=== PATIENT | male | born 1955 | race Asian ===

== ENCOUNTER 2018-03-23 20:38 | Inpatient (IN) | payer MEDICARE, OTHER ==
[~2018-03-23] VITALS: Ht 170.2 cm; Wt 83.0 kg
[2018-03-23 20:50] VITALS: BP 118/70
[2018-03-23 21:00] VITALS: BP 118/70
--- NOTE | 2018-03-23 21:00 | NUR ---
CHIEF ANALYTICS OFFICER ADMITTING NOTES RECEIVED PATIENT FROM [facility] TRANSPORTED BY 2 EMT, SAFELY TRANSFERRED TO BED, AMBULATORY WITH STAND BY ASSIST, AWAKE ALERT AND ORIENTED X 4, ABLE TO MAKE NEEDS KNOWN RESPIRATIONS EVEN AND UNLABORED WITH EQUAL RISE AND FALL OF CHEST SPO2 RA AT 98%, PLACED ON CARDIAC MONITORING SR 98, NPO AT THIS TIME, IV SITE TO LEFT AC#20 G INTACT AND PATENT, RIGHT HAND #22G INTACT AND PATENT, NO REDNESS, OR INFILTRATION PRESENT TO SITES. DENIES ANY PAIN AT THIS TIME, MRSA SWAB DONE, BODY ASSESSMENT DONE, SKIN INTACT,BELONGINGS LIST DONE, ALL NEEDS ATTENDED AT THIS TIME WILL CONTINUE TO MONITOR. REMAINS COMFORTABLE AT THIS TIME.
[2018-03-23] MEDS ORDERED: GLIM4TAB2 PO (21:56)
[2018-03-23] MEDS ORDERED: TENO300T5 PO (21:56)
[2018-03-23] MEDS ORDERED: INSU100I35 SQ (21:56)
[2018-03-23] MEDS ORDERED: GABA-532 PO (21:56)
[2018-03-23] MEDS ORDERED: ASPI-605 PO (21:56)
[2018-03-23] MEDS ORDERED: LABE100T5 PO (21:56)
[2018-03-23] MEDS ORDERED: INSU100V28 IJ (21:56)
[2018-03-23] MEDS ORDERED: ATOR80TA PO (21:56)
[2018-03-23] MEDS ORDERED: ALLO100T PO (21:56)
--- NOTE | 2018-03-23 22:00 | NUR ---
CAKE MIXER NOTES MADE AWARE OF ADMISSION AND MED RECON IN PLACE, AND PATIENT REQUESTING TO HAVE SOMETHING TO DRINK AND EAT, PER MD OKAY FOR LITTLE WATER AND PATIENT TO REMAIN NPO. PATIENT MADE AWARE. REMAINS COMFORTABLE AT THIS TIME.
[2018-03-24] VITALS: BP 94/59
--- NOTE | 2018-03-24 00:34 | NUR ---
CORE STICKER NOTES PATIENT INSISTING TO HAVE SODA PER MD OKAY TO HAVE SMALL AMOUNT, AND OKAY TO GIVE SMALL AMOUNT OF COKE AT THIS TIME NOW SMALL AMOUNT GIVEN.
[2018-03-24] MEDS ORDERED: ACETAMINOPHEN 650 MG/SUPP.RECT RC PRN (01:00)
[2018-03-24] MEDS: IV D5/0.45 NACL 1,000 ML IV PRN ×2 (01:28→21:05)
[2018-03-24] MEDS: ONDANSETRON HCL/PF 4 MG/2 ML VIAL IVP PRN ×3 (03:07→23:05)
[2018-03-24] MEDS: HYDROMORPHONE INJ 2 MG/ML DISP.SYRIN IV PRN ×4 (03:12→23:03)
--- NOTE | 2018-03-24 03:12 | NUR ---
FRAME NAILER NOTES PATIENT COMPLAINT OF NAUSEA AND PAIN ZOFRAN PRN ORDERED GIVEN COMPLAIN OF PAIN TO ABDOMEN / STATES"ACUTE AND ACHING, AL OF THE ABOVE" DILAUDID 0.25ML/0.5MG GIVEN ORDERED THE REST WASTED WITH ANOTHER RN VS WNL 123/81,88,18,97% WILL CONTINUE TO MONITOR FOR EFFECTIVENESS.
[2018-03-24 04:00] VITALS: BP_SYST 113; BP_SYST 118; BP_DIAS 73
--- NOTE | 2018-03-24 06:25 | NUR ---
GRAIN ELEVATOR MAN CLOSING NOTES PATIENT REMAINS IN BED SLEEPING BUT EASILY AROUSABLE, DILAUDID AND ZOFRAN EFFECTIVE, NAUSEA RESOLVED, ALERT AND ORIENTED X 4, RESPIRATIONS EVEN AND UNLABORED WITH EQUAL RISE AND FALL OF CHEST, DENIES ANY PAIN AT THIS TIME, ON TOWER OPERATOR SR 99 WITH PAC AND PVC'S. NO DISTRESS PRESENT, DENIES CHEST PAIN , NO BLEEDING PRESENT THROUGHOUT SHIFT, PATIENT IS NPO, IV SITE TO LEFT AC #20G INTACT AND PATENT, NO REDNESS, NO INFILTRATION PRESENT, IV SITE TO RIGHT HAND #22 G INTACT AND PATENT, NO REDNESS, NO INFILTRATION IVF D5 1/2 NS RUNNING AT 70ML/HR. BATHROOM NEEDS ATTENDED WITH STANDY BY ASSIST, CALL LIGHT KEPT WITHIN REACH, SAFETY PRECAUTIONS IN PLACE, ALL NEEDS ATTENDED REMAINS COMFORTABLE, WILL CONTINUE TO MONITOR AND ENDORSE TO NEXT SHIFT.
[2018-03-24 06:49] LABS: BASOPHILS # (AUTO) 0.1 /CMM (0.0-0.2); BASOPHILS % (AUTO) 0.5 % (0.0-2.0); EOSINOPHILS % (AUTO) 0.6 % (0.0-6.0); HEMATOCRIT 27 % (39-51); HEMOGLOBIN 8.5 g/dL (13.5-17.5); LYMPHOCYTES # (AUTO) 1.8 /CMM (0.8-4.8); LYMPHOCYTES % (AUTO) 17.3 % (20.0-44.0); MEAN CORPUSCULAR HGB CONC 32 g/dl (31.0-36.0); MEAN CORPUSCULAR VOLUME 89 fL (80-96); MONOCYTES # (AUTO) 0.9 /CMM (0.1-1.30); MONOCYTES % (AUTO) 8.6 % (2.0-12.0); NEUTROPHILS # (AUTO) 7.8 /CMM (1.8-8.9); PLATELET COUNT (AUTO) 113 /CMM (150-450); RED BLOOD CELL COUNT(AUTO) 2.97 MIL/uL (4.5-6.0); WHITE BLOOD COUNT (AUTO) 10.7 K/uL (4.3-11.0)
--- NOTE | 2018-03-24 06:55 | NUR ---
FOOD SAFETY AUDITOR NOTES PATIENT ASSISTED TO THE BATHROOM, COMPLAINT OF PAIN AND NAUSEA. REQUESTING FOR PAIN MEDICATION AND NAUSEA , MD MADE AWARE LAST TIME GIVEN 3 HOURS AGO,PER MD WITH NEW ORDER FOR ONE TIME DOSE, DILAUDID 0.5MG AND ZOFRAN ONE TIME DOSE 4 MG. ORDERS NOTED AND CARRIED OUT.
[2018-03-24] MEDS ORDERED: ONDANSETRON HCL/PF 4 MG/2 ML VIAL IV ONE (07:00)
[2018-03-24] MEDS ORDERED: HYDROMORPHONE INJ 2 MG/ML DISP.SYRIN IV ONE (07:00)
[2018-03-24 07:18] LABS: ALBUMIN 2.7 g/dL (3.4-5.0); BILIRUBIN,TOTAL 1.2 mg/dL (0.2-1.0); CALCIUM, SERUM 7.6 mg/dL (8.5-10.1); CREATININE 1.5 mg/dL (0.6-1.3); MAGNESIUM 2.3 mg/dL (1.8-2.4); PHOSPHORUS 3.4 mg/dL (2.5-4.9); TOTAL PROTEIN, SERUM 5.1 g/dL (6.4-8.2)
--- NOTE | 2018-03-24 07:30 | NUR ---
MS RN OPENING NOTES RECEIVED PATIENT IN STABLE CONDITION. BED SIDE RAILS ARE UP X2. BED IS LOCKED AND LOWERED. CALL LIGHT IS WITHIN REACH. IV LINE IS INTACT AND PATENT. WILL CONTINUE TO MONITOR PATIENT.
--- NOTE | 2018-03-24 07:33 | NUR ---
BOOT TURNER NOTES ONE TIME DOSE ORDERED GIVEN ZOFRAN 4MG DILAUDID 0.5MG. VS WNL 125,76,95,18,98%.
--- NOTE | 2018-03-24 07:34 | NUR ---
MATERIAL HANDLER 2ND SHIFT CLOSING NOTES PATIENT IN BED AWAKE ALERT AND ORIENTED X4, ABLE TO MAKE NEEDS KNOWN PATIENT MADE AWARE HE IS TO BE NPO AT THIS TIME NEED REMINDER. NO SOB AT THIS TIME, NO BLEEDING NOTED, ASSISTED TO THE BATHROOM , BACK TO BED COMFORTABLE IVF RUNNING ORDERED,IV TO LEFT AC AND RIGHT HAND INTACT, NO REDNESS, NO INFILTRATION. ON HEAVY DUTY DIESEL MECHANIC SR 95. NO DISTRESS PRESENT AT THIS TIME, ALL NEEDS ATTENDED , SAFETY PRECAUTIONS IN PLACE, LOW BED AND LOCKED, CALL ALARM IN PLACE, WILL CONTINUE TO MONITOR AND ENDORSE TO NEXT SHIFT.
[2018-03-24 08:00] VITALS: BP 120/71
[2018-03-24] MEDS: PANTOPRAZOLE 40 MG VIAL IV SCH ×2 (08:25→20:44)
[2018-03-24] MEDS ORDERED: PANTOPRAZOLE 40 MG VIAL IV SCH (09:00)
[2018-03-24 09:26] LABS: THYROID STIMULATING HORMONE 3.468 uIU/mL (0.358-3.74)
[2018-03-24 12:00] VITALS: BP 104/66
[2018-03-24 12:25] LABS: CREATININE, URINE 84.3 MG/DL (30.0-125.0); URINE TOTAL PROTEIN 22.6 mg/dL (0-11.9)
[2018-03-24 14:12] LABS: APPEARANCE,URINE Clear (CLEAR); BILIRUBIN,URINE Negative (NEGATIVE); BLOOD, URINE Negative Ery/uL (NEGATIVE); COLOR,URINE Yellow (YELLOW); KETONES,URINE Negative (NEGATIVE); LEUKOCYTE ESTERASE ,URINE Negative (NEGATIVE); NITRITE, URINE Negative (NEGATIVE); PH,URINE 5.5 (5.0-8.0); PROTEIN,URINE Negative (NEGATIVE); UGLUCOSE >=1000 mg/dL (NEGATIVE); UROBILINOGEN,URINE 0.2 EU/dL (0.2)
[2018-03-24] MEDS ORDERED: DEXTROSE 50%-WATER 50 ML DISP.SYRIN IV PRN (15:00)
[2018-03-24 15:03] LABS: URIC ACID CRYSTALS,URINE Moderate /HPF (None Seen)
[2018-03-24 15:04] LABS: BACTERIA,URINE Few /HPF (None Seen); RBC,URINE 0-2 /HPF (0-2); SQUAMOUS EPITHELIAL CELL,UR Rare /HPF (None Seen); WBC,URINE 0-2 /HPF (0-3)
[2018-03-24 15:05] LABS: EOSINOPHIL,URINE None Seen
[2018-03-24 16:00] VITALS: BP 133/83
[2018-03-24] MEDS ORDERED: IV NS 0.9% 1,000 ML BAG IV ONE (16:30)
[2018-03-24] MEDS ORDERED: IV NS 0.9% 1,000 ML IV PRN (16:30)
[2018-03-24] MEDS: BLOOD SUGAR DIAGNOSTIC 1 EACH STRIP IN SCH ×2 (16:46→23:06)
[2018-03-24] MEDS: INSULIN REGULAR, HUMAN 100 UNIT/ML 3 ML VIAL SQ PRN ×2 (16:48→23:18)
--- NOTE | 2018-03-24 19:35 | NUR ---
TELERN FULLY AWAKE, FEELING WEAK. STATED HAVING LOOSE LIQUID STOOLS TWICE. INSISTED TO HAVE IMMODIUM. PLACED CALL TO DR BOATENG, PENDING. BEDREST FOR NOW, IVF RECONNECTED. INFUSING WELL. NO SOB, HAVE O2 STANDBY.
[2018-03-24 20:00] VITALS: BP 124/71
[2018-03-24] MEDS: LOPERAMIDE HCL (2 MG CAP) 2 MG CAPSULE PO PRN (20:43)
--- NOTE | 2018-03-24 20:45 | NUR ---
TELERN IMODIUM 10 PO GIVEN. 02 2L VIA NC MAINTAINED.
--- NOTE | 2018-03-24 23:23 | NUR ---
TELERN VERBALIZES SEVERE ABD PAIN ACCPD BY NAUSEA. ZOFRAN AND DILAUDED ADMINISTERED ORDERED. BS WAS 268, COVERED WITH 6 UNITS OF REG INSULIN SQ. BEDREST EMPHASIZED, IVF CONTINUED
[2018-03-25 05:00] VITALS: BP 149/84
--- NOTE | 2018-03-25 06:50 | NUR ---
TELERN REFUSED BLOOD DRAW OF THIS TIME, WILL CALL. REFUSED TO BE DISTURBED.
--- NOTE | 2018-03-25 07:40 | NUR ---
PRODUCE ASSOCIATE OPENING NOTES RECEIVED PT LAYING IN BED, SLEEPING COMFORTABLY. PT IS EASILY AROUSABLE, A/O X4, AFEBRILE. RESPIRATIONS ARE EVEN AND UNLABORED, NOT IN ANY ACUTE DISTRESS NOTED. PT C/O ABDOMINAL PAIN 10/27, NO C/O SOB, N/V. IV SITE TO LAC AND RIGHT HAND INTACT, NO INFILTRATION NOTED. DRESSING KEPT CLEAN AND DRY. PT REFUSES IV FLUIDS AT THIS TIME AND STATES "START IT LATER." EXPLAINED THE IMPORTANCE OF IV HYDRATION, PT STILL NOTED WITH REFUSAL. PT ALSO STATED THAT HE WOULD LIKE LACTOSE FREE MILK. NOTIFIED KITCHEN AND WILL BRING LACTOSE FREE SILK ALMOND MILK, PER ARBEN. SAFETY MEASURES ARE IN PLACE. INSTRUCTED PT TO USE CALL LIGHT WHEN ASSISTANCE IS NEEDED, CALL LIGHT IS LEFT WITHIN REACH. WILL CONTINUE TO MONITOR PT THROUGHOUT SHIFT FOR CONTINUITY OF CARE.
[2018-03-25 08:00] VITALS: BP 131/75
[2018-03-25] MEDS: BLOOD SUGAR DIAGNOSTIC 1 EACH STRIP IN SCH ×4 (08:03→21:03)
[2018-03-25] MEDS: PANTOPRAZOLE 40 MG VIAL IV SCH ×2 (08:04→20:09)
[2018-03-25] MEDS: INSULIN REGULAR, HUMAN 100 UNIT/ML 3 ML VIAL SQ PRN ×4 (08:10→21:03)
[2018-03-25] MEDS: HYDROMORPHONE INJ 2 MG/ML DISP.SYRIN IV PRN ×3 (08:21→23:32)
[2018-03-25] MEDS: ONDANSETRON HCL/PF 4 MG/2 ML VIAL IVP PRN ×2 (11:54→17:35)
[2018-03-25 12:00] VITALS: BP 124/73
--- NOTE | 2018-03-25 15:12 | NUR ---
SHOE TRIMMER NOTES-- PT STATED HE THOUGHT HE WAS HAVING EGD DONE TODAY BUT NOBODY TOLD HIM TO SIGN ANY CONSENTS OR BE NPO. NOTIFIED DR. SPICER RE: PT STATING HE WANTS THE EGD DONE AND HAS BEEN C/O ABDOMINAL PAIN AND NAUSEA. PER DR. SPICER, "EGD WILL BE FOR TOMORROW." HOWEVER, DR. SPICER IS NOT SCOOP FILLER TOMORROW AND STATED HE WILL COMMUNICATE IT TO DR. LAGUNA. PER DR. SPICER, HE WILL SEE THE PATIENT TODAY.
--- NOTE | 2018-03-25 15:57 | NUR ---
COMPLAINT CLERK NOTES-- PT SEEN AND EXAMINED BY DR. SPICER W/ ORDERS TO START LACTULOSE 30ML PO Q8H AND EGD FOR TOMORROW. ORDERS READ BACK AND VERIFIED. ORDERS NOTED AND CARRIED OUT.
[2018-03-25 16:00] VITALS: BP 117/79
--- NOTE | 2018-03-25 16:13 | NUR ---
SPRINKLER IRRIGATION EQUIPMENT MECHANIC NOTES-- PER DR. SPICER, HE WILL NOTIFY TESSA BRIGHT RE:EGD TOMORROW.
[2018-03-25] MEDS: LACTULOSE 10 G/15 ML UDC (PYXIS) PO SCH ×2 (16:34→20:11)
[2018-03-25] MEDS ORDERED: LACTULOSE 10 G/15 ML UDC (PYXIS) PO PRN (17:00)
[2018-03-25 17:09] LABS: ALBUMIN 2.8 g/dL (3.4-5.0); BILIRUBIN,TOTAL 1.1 mg/dL (0.2-1.0); CALCIUM, SERUM 7.8 mg/dL (8.5-10.1); CREATININE 1.5 mg/dL (0.6-1.3); PHOSPHORUS 2.8 mg/dL (2.5-4.9); POTASSIUM 4.7 mmol/L (3.5-5.1); TOTAL PROTEIN, SERUM 5.3 g/dL (6.4-8.2)
--- NOTE | 2018-03-25 18:45 | NUR ---
LAW PROFESSOR CLOSING NOTES PT ABLE TO MAKE NEEDS KNOWN. NEEDS MET AND RENDERED. PT IS A/O X4, AFEBRILE. RESPIRATIONS ARE EVEN AND UNLABORED, NOT IN ANY ACUTE DISTRESS NOTED. PT DENIES ANY PAIN AT THIS TIME, NO C/O SOB, N/V. IV SITE TO LAC AND RIGHT HAND INTACT, NO INFILTRATION NOTED. DRESSING KEPT CLEAN AND DRY. SAFETY MEASURES ARE IN PLACE. CONSENTS SIGNED FOR EGD. PT MADE AWARE HE WILL BE NPO POST MIDNIGHT. WILL ENDORSE TO NEXT SHIFT FOR CONTINUITY OF CARE.
--- NOTE | 2018-03-25 19:28 | NUR ---
MARKETING ASSISTANT MANAGER NOTE RECEIVED PT IN STABLE CONDITION. A&O X4 ABLE TO MAKE NEEDS KNOWN. NO SIGNS OF SOB OR DISTRESS, NO CHEST PAIN, NO C/O N/V. SAFETY MEASURES IN PLACE: BED LOW AND LOCKED POSITION, UPPER BED RAILS UP X2, AND CALL LIGHT WITHIN REACH. WILL CONT. TO MONITOR.
[2018-03-25 20:00] VITALS: BP 113/59
--- NOTE | 2018-03-25 20:15 | NUR ---
HAT CLEANER NOTE PT REFUSED 21OO DOSE OF LACTULOSE. STATING "I'VE BEEN POOPING ALL DAY. I DO NOT WANT IT." PT MADE AWARE OF RISKS AND BENEFITS WITH VERBALIZATION OF UNDERSTANDING. WILL CONTINUE TO MONITOR.
[2018-03-25 23:12] LABS: BASOPHILS % (AUTO) 0.5 % (0.0-2.0); EOSINOPHILS % (AUTO) 1.9 % (0.0-6.0); HEMATOCRIT 26 % (39-51); LYMPHOCYTES # (AUTO) 1.1 /CMM (0.8-4.8); MEAN CORPUSCULAR HGB CONC 31 g/dl (31.0-36.0); MEAN CORPUSCULAR VOLUME 89 fL (80-96); MONOCYTES # (AUTO) 0.4 /CMM (0.1-1.30); NEUTROPHILS # (AUTO) 2.9 /CMM (1.8-8.9); NEUTROPHILS % (AUTO) 64.6 % (43.0-81.0); PLATELET COUNT (AUTO) 97 /CMM (150-450); RED BLOOD CELL COUNT(AUTO) 2.89 MIL/uL (4.5-6.0); WHITE BLOOD COUNT (AUTO) 4.4 K/uL (4.3-11.0)
[2018-03-25 23:29] LABS: ALBUMIN 2.7 g/dL (3.4-5.0); BILIRUBIN,TOTAL 0.8 mg/dL (0.2-1.0); CALCIUM, SERUM 7.7 mg/dL (8.5-10.1); CREATININE 1.6 mg/dL (0.6-1.3); POTASSIUM 3.9 mmol/L (3.5-5.1)
--- NOTE | 2018-03-25 23:35 | NUR ---
TELERN VERBALIZES ABD PAIN RATE OF 8/10. DILAUDED 0.5 MG IVP ADMINISTERED. SAFETY PRECAUTIONS EMPHASIZED.
[2018-03-25 23:54] LABS: LYMPHOCYTES % (MANUAL) 25 % (16-48); NEUTROPHILS % (MANUAL) 68 (42-76)
[2018-03-25 23:55] LABS: EOSINOPHILS % (MANUAL) 1 % (0-4); MONOCYTES % (MANUAL) 6 % (0-11.0)
[2018-03-26] MEDS: LACTULOSE 10 G/15 ML UDC (PYXIS) PO SCH ×3 (05:00→21:00)
--- NOTE | 2018-03-26 05:05 | NUR ---
VOLLEYBALL COACH NOTE ATTEMPTED TO GIVE 0500 DOSE OF LACTULOSE TO PT. PT. REFUSED, STATING HE HAS HAD 2 BM THROUGH THE NIGHT.
[2018-03-26] MEDS: IV D5/0.45 NACL 1,000 ML IV PRN (05:55)
--- NOTE | 2018-03-26 06:18 | NUR ---
POLISHING MACHINE TENDER NOTE PT IN STABLE CONDITION. A&O X4 ABLE TO MAKE NEEDS KNOWN. PT NPO SINCE MIDNIGHT. NO SIGNS OF SOB OR DISTRESS, NO CHEST PAIN, NO C/O N/V. SAFETY MEASURES IN PLACE: BED LOW AND LOCKED POSITION, UPPER BED RAILS UP X2, AND CALL LIGHT WITHIN REACH. WILL CONT. TO MONITOR AND ENDORSE TO NEXT SHIFT FOR SARA.
[2018-03-26] MEDS: INSULIN REGULAR, HUMAN 100 UNIT/ML 3 ML VIAL SQ PRN ×4 (06:29→21:31)
[2018-03-26] MEDS: BLOOD SUGAR DIAGNOSTIC 1 EACH STRIP IN SCH ×4 (06:31→21:29)
--- NOTE | 2018-03-26 07:30 | NUR ---
RN OPENING NOTES RECEIVED PATIENT IN BED RESTING. A/OX4, ABLE TO MAKE NEEDS KNOWN. NOT IN ANY FORM OF DISTRESS, NO SOB. DENIED PAIN OR DISCOMFORT AT THE MOMENT. IV ACCESS INTACT AND PATENT. ON TELE, SR 84. KEPT NPO FOR SURGERY TODAY. KEPT PATIENT SAFE AND COMFORTABLE. BED IN LOW/LOCKED POSITION, SIDERAISL UPX2, CALL LIGHT IN REACH. WILL CONTINUE TO MONITOR ACCORDINGLY.
[2018-03-26 08:00] VITALS: BP 136/80
[2018-03-26] MEDS: PANTOPRAZOLE 40 MG VIAL IV SCH ×2 (08:33→21:20)
[2018-03-26] MEDS: ONDANSETRON HCL/PF 4 MG/2 ML VIAL IVP PRN (08:43)
--- NOTE | 2018-03-26 09:50 | NUR ---
PICKED UP FOR SURGERY
[2018-03-26 10:48] VITALS: BP 121/69
--- NOTE | 2018-03-26 10:48 | NUR ---
CAME BACK FROM SURGERY. PATIENT IN STABLE CONDITION. VSS
--- NOTE | 2018-03-26 15:11 | NUR ---
RN NOTES DC'd IV ACCESS ON RIGHT HAND. NOT PATENT AND NOT FLUSHING. APPLIED PRESSURE, NO BLEEDING, NO COMPLICATIONS.
[2018-03-26 16:00] VITALS: BP 119/78
--- NOTE | 2018-03-26 19:11 | NUR ---
RN CLOSING NOTES PATIENT IN STABLE CONDITION. ALL NEEDS ATTENDED AND PROVIDED. ALL DUE MEDICATIONS GIVEN ORDERED. KEPT PATENT SAFE AND COMFORTABLE. BED IN LOW/LOCKED POSITION, SIDERAILS UPX2, CALL LIGHT IN REACH. WILL CONTINUE TO MONITOR ACCORDINGLY.
--- NOTE | 2018-03-26 19:41 | NUR ---
RN MS OPENING NOTES RECEIVED PATIENT IN BED AWAKE. ALERT AND ORIENTED X4, VERBALLY RESPONSIVE, ABLE TO MAKE NEEDS KNOWN. BREATHING EVEN AND UNLABORED. NO SOB NOTED. TOLERATING ROOM AIR. IV ON LAC INTACT AND PATENT. WITH COMPLAINTS OF PAIN ON ABDOMEN, WILL GIVE PRN PAIN MEDICATION. SKIN DRY AND WARM TO TOUCH. AFEBRILE. ALL OTHER NEEDS ATTENDED TO. SAFETY MEASURES IN PLACE. CALL LIGHT WITHIN REACH. WILL CONTINUE TO MONITOR.
[2018-03-26] MEDS: HYDROMORPHONE INJ 2 MG/ML DISP.SYRIN IV PRN (19:53)
[2018-03-26 20:00] VITALS: BP 124/78
--- NOTE | 2018-03-26 21:00 | NUR ---
RN MS NOTES PATIENT REFUSED LACTULOSE. PER PATIENT HE'S GONE TO THE BATHROOM AND MADE BM MULTIPLE TIMES ALREADY. EXPLAINED RISKS AND BENEFITS BUT STILL REFUSED. WILL CONTINUE TO MONITOR.
[2018-03-26] MEDS: CARVEDILOL 3.125 MG TABLET PO SCH (21:20)
[2018-03-27] MEDS: LACTULOSE 10 G/15 ML UDC (PYXIS) PO SCH ×3 (05:00→21:00)
--- NOTE | 2018-03-27 05:12 | NUR ---
RN MS NOTES PATIENT REFUSED LACTULOSE AGAIN DUE TO FREQUENT BM'S. EXPLAINED RISKS AND BENEFITS BUT STILL REFUSED. WILL CONTINUE TO MONITOR.
--- NOTE | 2018-03-27 06:03 | NUR ---
RN MS NOTES PATIENT REFUSED BLOOD DRAW THIS AM. PER PATIENT, HE WANTS IT "LATER". ROOF TECHNICIAN WILL COME BACK LATER. WILL CONTINUE TO MONITOR.
[2018-03-27] MEDS: BLOOD SUGAR DIAGNOSTIC 1 EACH STRIP IN SCH ×4 (06:30→21:34)
[2018-03-27] MEDS: INSULIN REGULAR, HUMAN 100 UNIT/ML 3 ML VIAL SQ PRN ×4 (06:31→21:39)
--- NOTE | 2018-03-27 06:44 | NUR ---
RN MS CLOSING NOTES PATIENT RESTING IN BED. NO ACUTE CHANGES THROUGHOUT SHIFT. BREATHING EVEN AND UNLABORED. NO SOB NOTED. TOLERATING ROOM AIR. IV ON LAC INTACT AND PATENT. NO COMPLAINTS OF PAIN OR DISCOMFORT. NO FACIAL GRIMACING. SKIN DRY AND WARM TO TOUCH. AFEBRILE. ALL OTHER NEEDS ATTENDED TO. SAFETY MEASURES IN PLACE. CALL LIGHT WITHIN REACH. WILL ENDORSE TO ONCOMING NURSE FOR SARA.
--- NOTE | 2018-03-27 07:30 | NUR ---
RN OPENING NOTES PATIENT RESTING IN BED. BREATHING EVEN AND UNLABORED. NO SOB, TOLERATING ROOM AIR SATTING 98%. NOT IN ANY FORM OF DISTRESS. IV ACCESS INTACT AND PATENT. NO COMPLAINTS OF PAIN OR DISCOMFORT AT THE MOMENT. KEPT PATIENT SAFE AND COMFORTABLE. BED IN LOW/LOCKED POSITION, SIDERAILS UPX2, CALL LIGHT IN REACH, WILL CONTINUE TO MONIOTR ACCORDINGLY.
[2018-03-27 08:00] VITALS: BP 90/57
[2018-03-27] MEDS: PANTOPRAZOLE 40 MG VIAL IV SCH ×2 (08:33→21:06)
[2018-03-27] MEDS: ONDANSETRON HCL/PF 4 MG/2 ML VIAL IVP PRN (08:34)
[2018-03-27] MEDS: CARVEDILOL 3.125 MG TABLET PO SCH ×2 (09:00→21:07)
[2018-03-27] MEDS: LOPERAMIDE HCL (2 MG CAP) 2 MG CAPSULE PO PRN (09:54)
[2018-03-27 10:20] LABS: *SPE A/G RATIO 1.7 (0.7-1.7); *SPE ALBUMIN 3.1 g/dL (2.9-4.4); *SPE ALPHA-1-GLOBULIN 0.2 g/dL (0.0-0.4); *SPE ALPHA-2-GLOBULIN 0.4 g/dL (0.4-1.0); *SPE BETA GLOBULIN 0.6 g/dL (0.7-1.3); *SPE GLOBULIN, TOTAL 1.8 g/dL (2.2-3.9); *SPE M-SPIKE Not Observed g/dL (Not Observed); *SPEGAMMA GLOBULIN 0.6 g/dL (0.4-1.8)
[2018-03-27 13:05] LABS: BASOPHILS % (AUTO) 0.8 % (0.0-2.0); EOSINOPHILS % (AUTO) 2.1 % (0.0-6.0); HEMATOCRIT 27 % (39-51); HEMOGLOBIN 8.3 g/dL (13.5-17.5); LYMPHOCYTES # (AUTO) 0.8 /CMM (0.8-4.8); LYMPHOCYTES % (AUTO) 25.2 % (20.0-44.0); MEAN CORPUSCULAR HGB CONC 31 g/dl (31.0-36.0); MEAN CORPUSCULAR VOLUME 87 fL (80-96); MONOCYTES # (AUTO) 0.2 /CMM (0.1-1.30); MONOCYTES % (AUTO) 7.2 % (2.0-12.0); NEUTROPHILS # (AUTO) 2.1 /CMM (1.8-8.9); NEUTROPHILS % (AUTO) 64.7 % (43.0-81.0); PLATELET COUNT (AUTO) 101 /CMM (150-450); RED BLOOD CELL COUNT(AUTO) 3.05 MIL/uL (4.5-6.0); WHITE BLOOD COUNT (AUTO) 3.3 K/uL (4.3-11.0)
[2018-03-27 13:14] LABS: PTH, INTACT 61 pg/mL (15-65)
[2018-03-27 13:16] LABS: CALCIUM, SERUM 7.7 mg/dL (8.5-10.1); CREATININE 1.5 mg/dL (0.6-1.3); POTASSIUM 4.1 mmol/L (3.5-5.1)
[2018-03-27 16:00] VITALS: BP 95/60
--- NOTE | 2018-03-27 16:22 | NUR ---
RN NOTES IV ACCESS NOT PATENT, LEAKING. REMOVED, APPLIED PRESSURE, NO BLEEDING, NO COMPLICATIONS.
[2018-03-27] MEDS: SUCRALFATE 1 G TABLET PO SCH ×2 (17:08→21:06)
[2018-03-27] MEDS: IV D5/0.45 NACL 1,000 ML IV PRN (18:24)
--- NOTE | 2018-03-27 18:28 | NUR ---
refused insertion of iv access at the moment. per patient, "let's do it later". will endorsed to night nurse
--- NOTE | 2018-03-27 19:34 | NUR ---
RN CLOSING NOTES PATIENT IN STABLE CONDITION. ALL NEEDS ATTENDED AND PROVIDED. ALL DUE MEDICATIONS ADMINISTERED ORDERED. KEPT PATIENT SAFE AND COMFORTABLE. BED IN LOW/LOCKED POSITION, SIDERAILS UPX2, CALL LIGHT IN REACH. ENDORSED TO NIGHT RN FOR SARA.
[2018-03-27 20:00] VITALS: BP 127/80
--- NOTE | 2018-03-27 20:10 | NUR ---
MS RN NOTES Patient complaint pain 8/10, medial abdomen, feeling bloated. Offered to patient available meds ordered. Patient agreed to reinsert IV line. Reinserted RAC G#24, 1 attempt, blood return noted. Patient tolerated the procedure well. Administered Dilaudid as ordered. Kept on bed comfortable. Will continue to monitor accordingly.
[2018-03-27 20:17] LABS: ALBUMIN 2.6 g/dL (3.4-5.0); BILIRUBIN,DIRECT 0.2 mg/dL (0.0-0.2); BILIRUBIN,TOTAL 0.6 mg/dL (0.2-1.0); TOTAL PROTEIN, SERUM 5.1 g/dL (6.4-8.2)
[2018-03-27] MEDS: HYDROMORPHONE INJ 2 MG/ML DISP.SYRIN IV PRN (20:48)
--- NOTE | 2018-03-27 22:15 | NUR ---
MS RN NOTES Patient on L sidelying position on bed, HOB flat. no SOB/dyspnea noted. Saturating well on RA. Administered due meds as ordered. All needs attended. Kept on bed comfortable. Will continue to monitor accordingly.
[2018-03-28] MEDS: LACTULOSE 10 G/15 ML UDC (PYXIS) PO SCH (04:52)
--- NOTE | 2018-03-28 04:52 | NUR ---
MS RN NOTES Patient refused to take lactulose. Explain the benefits of taking this med, patient verbalized he has regular bowel movement. Patient insisted to refuse and said will ask for it if he does not have regular bowel movement.
[2018-03-28] MEDS: HYDROMORPHONE INJ 2 MG/ML DISP.SYRIN IV PRN (06:49)
[2018-03-28] MEDS: INSULIN REGULAR, HUMAN 100 UNIT/ML 3 ML VIAL SQ PRN ×2 (06:49→11:51)
[2018-03-28] MEDS: SUCRALFATE 1 G TABLET PO SCH ×2 (06:50→11:55)
[2018-03-28] MEDS: BLOOD SUGAR DIAGNOSTIC 1 EACH STRIP IN SCH ×2 (06:50→11:49)
--- NOTE | 2018-03-28 06:56 | NUR ---
MS RN CLOSING NOTES Patient asleep on supine position on bed with patent peripheral IV line RFA G#24 with D5 1/2NS @ 70ml/hr as ordered. No SOB/dyspnea noted. Medicated for pain, noted effective. Patient noted refusing laxatives, claimed he is defecating well. All needs attended. Kept clean, dry and comfortable on bed. Call light at bedside. Endorsed to the next shift.
--- NOTE | 2018-03-28 07:05 | NUR ---
MS RN INITIAL NOTES Report received at bedside. Patient received in bed, awake, comfortable. Alert and oriented x4, verbally responsive. No complaints of pain at the moment. No SOB/labored breathing noted. Not in any apparent distress. Safety measures in place. Will continue to monitor and assess patient
[2018-03-28 07:34] LABS: BASOPHILS % (AUTO) 1.2 % (0.0-2.0); EOSINOPHILS % (AUTO) 2.7 % (0.0-6.0); HEMATOCRIT 27 % (39-51); HEMOGLOBIN 8.4 g/dL (13.5-17.5); LYMPHOCYTES # (AUTO) 0.7 /CMM (0.8-4.8); LYMPHOCYTES % (AUTO) 23.2 % (20.0-44.0); MEAN CORPUSCULAR HGB CONC 31 g/dl (31.0-36.0); MEAN CORPUSCULAR VOLUME 86 fL (80-96); MONOCYTES # (AUTO) 0.3 /CMM (0.1-1.30); MONOCYTES % (AUTO) 10.5 % (2.0-12.0); NEUTROPHILS # (AUTO) 1.9 /CMM (1.8-8.9); NEUTROPHILS % (AUTO) 62.4 % (43.0-81.0); PLATELET COUNT (AUTO) 111 /CMM (150-450); RED BLOOD CELL COUNT(AUTO) 3.11 MIL/uL (4.5-6.0); WHITE BLOOD COUNT (AUTO) 3.1 K/uL (4.3-11.0)
[2018-03-28 08:00] VITALS: BP 117/69
[2018-03-28 08:29] VITALS: BP 117/69
[2018-03-28] MEDS: PANTOPRAZOLE 40 MG VIAL IV SCH (08:29)
[2018-03-28] MEDS: CARVEDILOL 3.125 MG TABLET PO SCH (08:29)
[2018-03-28 08:38] LABS: ALBUMIN 2.8 g/dL (3.4-5.0); BILIRUBIN,TOTAL 0.6 mg/dL (0.2-1.0); CALCIUM, SERUM 7.9 mg/dL (8.5-10.1); CREATININE 1.3 mg/dL (0.6-1.3); MAGNESIUM 1.9 mg/dL (1.8-2.4); PHOSPHORUS 2.7 mg/dL (2.5-4.9); POTASSIUM 4.1 mmol/L (3.5-5.1); TOTAL PROTEIN, SERUM 5.4 g/dL (6.4-8.2)
--- NOTE | 2018-03-28 08:45 | NUR ---
MS RN NOTES Neema (Ultrasound) called to report that paracentesis cannot be done due to lack of fluids. Neema stated that she spoke to radiologist (Dr. Castro) as well for advice and there's is no excess fluids or 'pocketing' that can be drained. Dr. Simmons made aware. Per conversation with MD, patient is clear for discharge.
--- NOTE | 2018-03-28 12:35 | NUR ---
MS IMPREGNATING HELPER NOTES Patient was cleared for discharge by MD. Patient was anxious to leave. Discharge instructions provided to patient: pt verbalized understanding. Exit care papers provided to patient: forms signed. Belongings with patient: belongings form signed. [facility] came @1215 but let patient finished his lunch meal. Transported patient via gurney in stable condition with no SOB/labored breathing noted. Not in any apparent distress. Complained of pain but "tolerable", per patient. IV cath removed: cath tip intact with no bleeding noted. All questions and concerns addressed. Patient's roommate (Lauren) will be at home to receive patient (confirmed by patient).
== END 2018-03-28 12:35 | disposition home or self-care (01) | DRG 432 ==
LOC: TELE 20:38 → MED 03-26 10:44
PROVIDERS: ADMIT Internal Medicine; ATTEND Internal Medicine
PROC: 0DB98ZX Excision of Duodenum, Via Natural or Artificial Opening Endoscopic, Diagnostic (ICD-10-PCS; principal; 2018-03-26)
PROC: 0DB78ZX Excision of Stomach, Pylorus, Via Natural or Artificial Opening Endoscopic, Diagnostic (ICD-10-PCS; 2018-03-26)
DX: K70.31 Alcoholic cirrhosis of liver with ascites (principal); N17.0 Acute kidney failure with tubular necrosis; I21.4 Non-ST elevation (NSTEMI) myocardial infarction; I24.9 Acute ischemic heart disease, unspecified; B18.1 Chronic viral hepatitis B without delta-agent; I13.0 Hypertensive heart and chronic kidney disease with heart failure and stage 1 through stage 4 chronic kidney disease, or unspecified chronic kidney disease; I85.00 Esophageal varices without bleeding; K76.6 Portal hypertension; J98.11 Atelectasis; K29.70 Gastritis, unspecified, without bleeding; E11.22 Type 2 diabetes mellitus with diabetic chronic kidney disease; N18.9 Chronic kidney disease, unspecified; I11.0 Hypertensive heart disease with heart failure; K29.80 Duodenitis without bleeding; E11.40 Type 2 diabetes mellitus with diabetic neuropathy, unspecified; I25.10 Atherosclerotic heart disease of native coronary artery without angina pectoris; Z95.1 Presence of aortocoronary bypass graft; Z85.05 Personal history of malignant neoplasm of liver; Z80.1 Family history of malignant neoplasm of trachea, bronchus and lung; Z80.0 Family history of malignant neoplasm of digestive organs; Z79.82 Long term (current) use of aspirin; Z79.899 Other long term (current) drug therapy; D64.9 Anemia, unspecified; M10.9 Gout, unspecified; E78.5 Hyperlipidemia, unspecified; E66.9 Obesity, unspecified; Z68.28 Body mass index [BMI] 28.0-28.9, adult; Z79.84 Long term (current) use of oral hypoglycemic drugs; Z79.4 Long term (current) use of insulin; K44.9 Diaphragmatic hernia without obstruction or gangrene; E78.1 Pure hyperglyceridemia; E27.8 Other specified disorders of adrenal gland; I25.2 Old myocardial infarction; I50.9 Heart failure, unspecified; I25.5 Ischemic cardiomyopathy; F10.10 Alcohol abuse, uncomplicated; Y90.9 Presence of alcohol in blood, level not specified; K86.89 Other specified diseases of pancreas
CPT/HCPCS: 36415; 71045-TC; 76705-TC; 76770-TC; 80048-TC; 80053-TC; 80061-TC; 80074; 80076-TC; 81000-TC; 82105; 82140-TC; 82150-TC; 82247-TC; 82248-TC; 82550-TC; 82570-TC; 82962-TC; 83690-TC; 83735-TC; 83970; 84100-TC; 84155; 84155-TC; 84165; 84300-TC; 84443-TC; 84484-TC; 85025-TC; 85610-TC; 87081-TC; 88305-TC; 88313-TC; 88342; 93307-TC; A6402; C9113; G0378; J1170; J1815; J2405; J3490